=== PATIENT | male | born 1995 | race African-American/Black ===

== ENCOUNTER 2019-10-23 18:31 | Observation (INO) | payer OTHER, SELFPAY ==
--- NOTE | ~2019-10-23 | MR_ITS ---
EXAMINATION: MR brain/brain stem wo/w con DATE: 10/24/2019 12:51 INDICATION: Right leg weakness. TECHNIQUE: Magnetic resonance imaging (MRI) of the brain and brainstem was performed without and with 14 mL MultiHance intravenous contrast. Sequences included sagittal and axial T1-weighted FLAIR, axia l T1-weighted FSE, axial diffusion-weighted FS EPI, sagittal T2-weighted FLAIR, axial T2*-weighted GR E, axial T2-weighted FLAIR Propeller, and axial T2-weighted Propeller. Postcontrast sequences include d axial, coronal, and sagittal T1-weighted FSE. Apparent diffusion coefficient (ADC) maps were create d. COMPARISON: None. FINDINGS: There is no intracranial hemorrhage, acute infarction, or abnormal intracranial mass lesion . The ventricles are normal in size. The paranasal sinuses are clear. The orbits are normal. The mast oid air cells are normal. IMPRESSION: 1. Normal brain. Reviewed, dictated and finalized at location A. [employer] IMPRESSION: 1. Normal brain.
--- NOTE | ~2019-10-23 | MR_ITS ---
EXAMINATION: MR cervical spine wo/w con DATE: 10/24/2019 12:51 INDICATION: Right leg weakness. TECHNIQUE: Magnetic resonance imaging (MRI) of the cervical spine was performed without and with 14 L MultiHance intravenous contrast. Sequences included sagittal and axial T2-weighted FSE, sagittal STI R FSE, and sagittal and axial T1-weighted FSE. Postcontrast sequences included sagittal and axial T1- weighted FS FSE. COMPARISON: None FINDINGS: Bone alignment is normal. Vertebral body heights and intervertebral disc heights are normal . The spinal cord signal intensity is normal. The following disc levels are specifically discussed: C2-C3 through C6-C7: The disc does not extend beyond the endplate margin. There is no uncovertebral j oint osteoarthritis. There is no facet joint osteoarthritis. There is no neural foraminal stenosis. T here is no central canal stenosis. C7-T1: The disc does not extend beyond the endplate margin. There is no uncovertebral joint osteoarth ritis. There is mild bilateral facet joint osteoarthritis. There is no neural foraminal stenosis. The re is no central canal stenosis. IMPRESSION: 1. No etiology for the patient's symptoms. Reviewed, dictated and finalized at location A. IGN LANGUAGES PROFESSOR
--- NOTE | ~2019-10-23 | CT_ITS ---
EXAMINATION: CT brain wo con DATE: 10/23/2019 20:59 INDICATION: Numbness TECHNIQUE: Computed tomography (CT) of the head was performed without intravenous contrast. Sagittal and coronal reconstructions were performed. The mA was adjusted according to patient size. Iterative reconstruction technique was employed. The dose-length product was 681.00 mGy-cm. COMPARISON: None FINDINGS: No acute intracranial hemorrhage, acute infarction or abnormal extra axial fluid collection. Ventricl es are normal and symmetric. No mass/mass effect. The orbits, paranasal sinuses and mastoid air cells are normal. IMPRESSION: 1. Normal brain. No acute intracranial process. Reviewed, dictated and finalized at location A. NG [employer]LLER BLINDSTITCH
[2019-10-23 18:48] VITALS: BP 126/69; PULSE 82; RESP 18; TEMP 36.4; O2SAT 100
[2019-10-23 19:37] VITALS: BP 120/76; PULSE 80; RESP 16; O2SAT 100
--- NOTE | 2019-10-23 19:37 | PC.NURSE ---
received report from anahy greenwood, assuming care of pt at this time.
--- NOTE | 2019-10-23 19:37 | PC.NURSE ---
assuming care of pt at this time. received report from anahy greenwood.
[2019-10-23 19:42] LABS: Alanine Aminotransferase 24 U/L (4-50); Albumin Level 4.9 g/dL (3.5-5.1); Alkaline Phosphatase 92 U/L (38-126); Aspartate Amino Transferase 36 U/L (17-59); Bilirubin,Total 0.7 mg/dL (0.2-1.3); Blood Urea Nitrogen 10 mg/dL (9-20); Calcium 10.2 mg/dL (8.4-10.2); Carbon Dioxide 24 mmol/L (22-30); Chloride 101 mmol/L (98-107); Estimated CRCL calculation 139 ml/min; Estimated Glomerular Filt Rate > 60; Glucose 92 mg/dL (75-110); Potassium 3.5 mmol/L (3.4-5.0); Sodium 138 mmol/L (137-145)
[2019-10-23 19:47] LABS: Lipase < 10 U/L (23-300)
[2019-10-23 19:48] LABS: Basophils Percent Auto 0.7 % (0.2-1.2); Eosinophils Percent Auto 0.4 % (0-4.4); Hematocrit 44.4 % (42.0-52.0); Hemoglobin 15.7 g/dL (14.0-18.0); Immature Granulocyte Absolute 0.03 K/mm3 (0.00-0.031); Immature Granulocyte Percent A 0.5 % (0-0.5); Lymphocytes Absolute Auto 2.12 K/mm3 (0.9-3.2); Lymphocytes Percent Auto 38.8 % (18.3-44.2); Mean Corpuscular HGB Conc 35.4 g/dl (32-36); Mean Corpuscular Hemoglobin 34.4 pg (26-34); Mean Corpuscular Volume 97.2 fl (80-100); Mean Platelet Volume 10.1 fl (7.4-10.4); Monocytes Absolute Auto 0.4 K/mm3 (0.1-0.6); Monocytes Percent Auto 6.9 % (2.6-8.5); Neutrophils Absolute Auto 2.9 K/mm3 (1.3-6.7); Neutrophils Percent Auto 52.7 % (45.5-73.1); Platelet Count Result 197 k/mm3 (150-375); Red Blood Count 4.57 M/mm3 (4.6-6.20); Red Cell Distribution Width 12.1 % (11.5-14.5); White Blood Count 5.5 K/mm3 (4.5-10.0)
--- NOTE | 2019-10-23 20:00 | PC.NURSE ---
pt ambulated to bathroom w/ no difficulties at this time.
--- NOTE | 2019-10-23 20:09 | PC.NURSE ---
urine sent to lab at this time.
[2019-10-23 20:19] LABS: Add Urine Microscopic? YES; Appearance Urine Cloudy (Clear); Bacteria Urine 1+ /hpf; Bilirubin Urine Negative (Negative); Blood Urine Negative (Negative); Color Urine Yellow (Yellow); Glucose Urine UA Negative (Negative); Ketones Urine 2+ mg/dL (Negative); Leukocyte Esterase Ur 3+ LEU/UL (Negative); Mucus Urine Moderate /lpf; Nitrate Urine Negative (Negative); Protein Urine 2+ mg/dL (Negative); RBC Urine 51-75 /hpf (0-2); Specific Grav Ur 1.027 (1.001-1.035); Squamous Epithelial Cell Urine Many /hpf (Few); WBC Urine >75 /hpf
--- NOTE | 2019-10-23 20:30 | ED.GENADULT ---
HPI - General Adult General Chief complaint: Unspecified Stated complaint: my body is numb Time Seen by Provider: 10/23/19 20:10 Source: patient and RN notes reviewed Mode of arrival: wheelchair Limitations: no limitations History of Present Illness HPI narrative: Pt is a 23 y/o male who presents to the ED with c/o intermittent numbness in his hands, legs, and tongue starting earlier today. He notes that he drank a significant amount of EtOH last night. Pt states that he has been unable to use his rt leg this evening due to the numbness, noting that he had to be brought into the ED via a wheelchair. He also reports ABD pain, nausea, and vomiting starting earlier today, but denies any fever, dysuria, hematuria, diarrhea, back pain, or changes in vision. Pt states that he has had one similar episode several years ago, and notes that his physician attributed his symptoms to anxiety. MD complaint: Numbness Onset (ago): day(s) (1) Location: mouth (tongue), upper extremity (hands) and lower extremity (bilateral legs) Associated symptoms: nausea/vomiting and other (ABD pain) Related Data Allergies Allergy/AdvReac Type Severity Reaction Status Date / Time No Known Allergies Allergy Unverified 10/25/17 06:06 Review of Systems Review of Systems: Narrative: CONSTITUTIONAL: Denies fever, chills, or sweats. EYES: Denies visual changes, redness, or discharge. GASTROINTESTINAL: Reports abdominal pain, nausea, and vomiting. Denies diarrhea. GENITOURINARY: Denies dysuria or hematuria. MUSCULOSKELETAL: Denies back pain, joint pain, or myalgia. NEUROLOGIC: Denies headache or weakness. Reports numbness in bilateral legs, hands, and tongue. All systems reviewed & are unremarkable except as noted in HPI and below PMFSH Past Medical History Medical History Anxiety Asthma Athlete's foot Finger fracture, right Surgical History Surgical History History of orthopedic surgery repair of rt finger fracture Hx of tonsillectomy Social History Social History Smoking status: Smoker, status unknown Gender identity (if verbalized by the patient): Male Exam Narrative: Exam Narrative: GENERAL: Well-appearing, well-nourished, and in no acute distress. HEAD: Normocephalic, atraumatic. EYES: PERRLA and EOMI. ENT: Nares clear, no rhinorrhea or epistaxis. Mucous membranes moist. NECK: Supple. CHEST: Clear to auscultation. No respiratory distress. HEART: Regular rate and rhythm. No murmur heard. Normal peripheral pulses. ABDOMEN: Soft, nontender, nondistended, normal active bowel sounds. EXTREMITIES: Normal range of motion. No edema. SKIN: Warm, dry, no rash. NEURO: Alert and oriented. Finger to nose intact bilaterally. EOMs intact without nystagmus. No facial droop/asymmetry noted bilaterally. Grimace intact. Intact sensation in face. Hearing intact bilaterally. Shoulder shrug intact. Merchant Miller strength 5 out of 5 bilaterally. Intact facial sensation V1, V2, V3 distribution. Strength 5/5 bilateral upper extremities. Strength in the right lower extremity is 2 out of 5, patient is not able to raise his leg from the bed. He is hyperreflexic, 4+ patellar reflex RLE. Patient cannot complete [id number] with the right because he is unable to move the right lower extremity. Left lower extremity reflexes normal at 2+. [id number] is normal. Negative Babinski. Right foot cannot illicit babinski sign. Pt not able to bare weight on right leg. Otherwise is hopping to ambulate. Course Course Emergency Course: Patient presented for intermittent numbness, continued right lower leg numbness, difficulty moving the right lower extremity. Patient with hyperreflexia in the right lower extremity, decreased sensation, although he is able to discern some fine pressure sensations, pt with decreased motor function. This is concerning for
--- NOTE | 2019-10-23 20:41 | PC.NURSE ---
Called lab to add on C-Reactive Protein and ESR.
--- NOTE | 2019-10-23 20:49 | PC.NURSE ---
Called lab to add on vitamin B12 and folate.
[2019-10-23 20:53] LABS: CRP < 0.5 mg/dL (<1.0)
--- NOTE | 2019-10-23 20:54 | PC.NURSE ---
Called lab to add on urine drug screen.
[2019-10-23 21:13] LABS: Erythrocyte Sedimentation Rate 11 mm/hr (0-20)
[2019-10-23 21:14] VITALS: BP 128/76; PULSE 84; RESP 16; O2SAT 99
[2019-10-23 21:42] LABS: Barbiturate Screen Urine Negative (Negative); Benzodiazepines Screen Urine Negative (Negative)
[2019-10-23 21:43] LABS: Amphetamine Screen Urine Negative (Negative); Cannabinoid Screen Urine Positive (Negative); Cocaine Screen Urine Negative (Negative); Methadone Screen Urine Negative (Negative)
[2019-10-23 21:52] VITALS: BP 114/86; PULSE 86; RESP 16; O2SAT 99
[2019-10-23 21:59] LABS: Opiate Screen Urine Negative (Negative); Phencyclidine Screen Urine Negative (Negative)
[2019-10-23 22:10] LABS: Folic Acid 15.7 ng/mL (2.76->20)
[2019-10-23 22:26] VITALS: BP 128/74; PULSE 58; RESP 16; O2SAT 97
[2019-10-23 23:13] VITALS: BP 127/88; PULSE 69; RESP 18; O2SAT 99
[2019-10-24] VITALS (9 sets, daily range): BP systolic 115–127; BP diastolic 80–84; PULSE 59–76; RESP 16–20; TEMP 36.1–36.6; O2SAT 97–99; BMI 22.4
[2019-10-24] MEDS: CYANOCOBALAMIN INJ 1,000 MCG/ML VIAL 1000 MCG IM (01:13)
[2019-10-24] MEDS: THIAMINE HCL 200 MG/2 ML VIAL 100 MG IV PUSH (01:13)
--- NOTE | 2019-10-24 01:52 | ADMGEN ---
This patient, Familia Franz, was admitted to IMU Room 200-01. Patient/family oriented to hospital policies and general routines including ID bracelet, bed and alarms, visiting hours, pain management, procedures, bathroom and other care routines, personal items, smoking policy, room service/diet, and visiting hours. Valuables list has been completed. Information on how to activate the Rapid Response Team has been discussed. Patient/Family are encouraged to report perceived risks to care and to ask questions if they do not understand what they are told or what they should do.
--- NOTE | 2019-10-24 08:37 | PM.IMHP ---
H&P: HPI History of Present Illness Chief complaint: RIGHT LEG WEAKNESS Narrative: Date of visit 10/24. Familia Franz is a 23 year old healthy black male who on the evening of the admittedly drank heavily consuming at least 12 cans of tall boy beer and a 5th of liquor. During the day on the he was chilled nausea and vomiting some abdominal cramping. Started having symptoms of numbness early in the day and when the persisted with weakness in his right leg he presented to the emergency room for evaluation. There CT scan and laboratory work was unremarkable other than pyuria and was admitted for evaluation treatment. There was concern about myelitis and Neurology [facility] in [facility] tertiary care were consulted but no beds were available. This a.m. his symptoms have totally resolved. He does relate that several years ago had a similar episode after drinking heavily that affected his upper extremities with weakness not his lower. It resolved spontaneously also Review of Systems Review of Systems: Narrative: Constitutional weight stable appetite good Eye. The no double vision scotoma Mouth no pharyngitis laryngitis Pulmonary no shortness breath wheezing or cough CV no history of murmurs chest pain or palpitation GI after present illness had some loose stools this a.m. no melena no hematochezia Muscle skeletal no but urine as per present illness no dysuria or hematuria Neuro no history of seizures or syncope Integument no skin breakdown rashes Psych no depression PMFSH Past Medical History Medical History Anxiety Asthma Athlete's foot Finger fracture, right Surgical History Surgical History History of orthopedic surgery repair of rt finger fracture Hx of tonsillectomy Social History Social History Smoking packs per day: 3 Smoking cigarettes per day: 60.0 Years smoked: 12 Smoking pack-years: 36.00 Smoking status: Former smoker Smoking end date: 08/12/19 Alcohol intake: current Drinks per week: 30 Substance use: current Substance use type: marijuana Gender identity (if verbalized by the patient): Male Agree to blood products: Yes Meds Home Medications and Allergies Home Medications Medication Instructions Recorded Confirmed Type No Home Medications 10/24/19 10/24/19 History Allergies Allergy/AdvReac Type Severity Reaction Status Date / Time No Known Allergies Allergy Unverified 10/25/17 06:06 Vital Signs Vital Signs - 24 hr 10/23/19 18:48 10/23/19 19:37 10/23/19 21:14 Temperature 36.4 C L Pulse Rate 82 80 84 Respiratory Rate 18 16 16 Blood Pressure 126/69 120/76 128/76 Pulse Oximetry 100 100 99 10/23/19 21:52 10/23/19 22:26 10/23/19 23:13 Temperature Pulse Rate 86 58 L 69 Respiratory Rate 16 16 18 Blood Pressure 114/86 128/74 127/88 Pulse Oximetry 99 97 99 10/24/19 00:25 10/24/19 01:36 10/24/19 02:00 Temperature 36.6 C Pulse Rate 76 72 68 Respiratory Rate 18 18 20 Blood Pressure 119/80 124/82 118/84 Pulse Oximetry 99 99 97 10/24/19 03:55 10/24/19 04:00 10/24/19 06:00 Temperature 36.1 C L Pulse Rate 72 64 59 L Respiratory Rate 16 Blood Pressure 115/80 Pulse Oximetry 97 10/24/19 08:00 Temperature 36.1 C L Pulse Rate 70 Respiratory Rate 16 Blood Pressure 127/83 Pulse Oximetry 99 Exam Narrative: Exam Narrative: Blood pressure 126/82 pulse is 70 afebrile saturating 95% on room air Pupils equal reactive to light sclera anicteric Mouth normal tongue protrudes in midline Neck supple no adenopathy thyromegaly carotid bruits Lungs clear CV regular rate rhythm no murmurs or gallops Abdomen soft nontender no masses Extremities without edema distal pulses are 2+ Neuro cranial nerves 2-12 are intact 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 Fl
[2019-10-24] MEDS: THIAMINE HCL 100 MG TABLET PO (08:41)
[2019-10-24 09:29] LABS: Magnesium 1.9 mg/dL (1.6-2.3); Phosphorus 4.1 mg/dL (2.5-4.5)
--- NOTE | 2019-10-24 17:52 | PM.DS ---
DS: Diagnosis Admitting Diagnosis Admitting Diagnosis: Paresthesia with weakness Discharge Diagnosis (1) Paresthesias: Code(s): R20.2 - Paresthesia of skin Status: Acute Assessment and Plan: With associated weakness and right leg. His initially thought he may have had myelitis which is still a possibility but symptoms resolved. Probably related to his binge drinking and MR of brain, brainstem, and C-spine did not suggest myelitis or MS. Totally normal (2) ETOH abuse: Code(s): F10.10 - Alcohol abuse, uncomplicated Status: Acute Assessment and Plan: Patient occasionally binge drinks. Denies drinking on a daily basis, does maintain gainful employment. LFTs are normal and no anemia. He has gotten thiamin,B12, and magnesium and phosphorus were also normal suggesting no ongoing drinking habit (3) Pyuria: Code(s): R82.81 - Pyuria Status: Acute Assessment and Plan: Could be UTI or urethritis. Urine antigens for chlamydia and gonorrhea were obtained as well as urine culture. Got 1 dose of ceftriaxone pending results of culture and discharged on doxycycline doxycycline 100 b.i.d. Urine probe for chlamydia and GC were pending DS: Summary Hospital Course Hospital Course: 23-year-old black male or usually healthy presented with paresthesias and weakness primarily in right leg with perceived hyper reflexia. All symptoms started within 24 hours after episode of binge drinking. After 12 hours hear his symptoms had totally resolved. Metabolic parameters were negative and MR of the brain, brainstem and C-spine were all normal. He was discharged to full activity to follow up with primary care he may return to work Time Spent with Patient Time attestation: Total time spent providing and/or coordinating discharge services: 35 minutes Exam Narrative: Exam Narrative: Condition on discharge Blood pressure 116/82 pulse 76 sat 98% on room air afebrile Pupils equal reactive to light sclera anicteric Lungs clear CV regular rate rhythm Abdomen soft nontender Extremities without edema distal pulse 2 + Neuro alert cooperative no focal deficits at this time and no paresthesias or weakness detected He was up ambulating without assistance to could diet well with no nausea or other symptomatology DS: Data Data Completed and Pending Labs on day of discharge: Labs from last 24 hours 10/24/19 10/24/19 10/23/19 08:56 08:56 21:17 WBC RBC Hgb Hct MCV MCH MCHC RDW Plt Count MPV Immature Gran % (Auto) Neut % (Auto) Lymph % (Auto) Perkins % (Auto) Eos % (Auto) Baso % (Auto) Lymph # (Auto) Perkins # (Auto) Eos # (Auto) Baso # (Auto) Abs Immat Gran (auto) Absolute Neuts (auto) Absolute Nucleated RBC Nucleated RBC % ESR Sodium Potassium Chloride Carbon Dioxide BUN Creatinine Estim Creat Clear Calc Estimated GFR Glucose Calcium Phosphorus 4.1 Magnesium 1.9 Total Bilirubin AST ALT Alkaline Phosphatase C-Reactive Protein Total Protein Albumin Lipase Vitamin B12 Folate TSH (Reflex) 3.450 Urine Color Urine Appearance Urine pH Ur Specific [place] Urine Protein Urine Glucose (UA) Urine Ketones Ur Blood (Man) Urine Nitrate Urine Bilirubin Urine Urobilinogen Leukocyte Esterase Rfl Urine RBC Urine WBC Ur Squamous Epith Cells Urine Bacteria Urine Mucus Urine Opiates Screen Urine Methadone Screen Ur Barbiturates Screen Ur Phencyclidine Scrn Ur Amphetamine Screen U Benzodiazepines Scrn Urine Cocaine Screen U Cannabinoids Screen C.trachomatis RNA (TMA) Pending N.gonorrhoeae RNA (TMA) Pending 10/23/19 10/23/19 10/23/19 21:17 20:08 19:44 WBC RBC Hgb Hct MCV MCH MCHC RDW Plt Count MPV Immature Gran % (
== END 2019-10-24 14:15 | disposition home or self-care (01) ==
LOC: ANHED 10-24 00:46 → ANHIMU 10-24 02:48
PROVIDERS: Emergency Medicine; Admitting Provider Internal Medicine; Emergency Provider Emergency Medicine; Visit Provider Internal Medicine
DX: R20.0 Anesthesia of skin (principal); R53.1 Weakness; F10.10 Alcohol abuse, uncomplicated; R82.81 Pyuria; Z87.891 Personal history of nicotine dependence
CPT/HCPCS: 36415; 70450; 70553; 72156; 80053; 80307; 81001; 82607; 82746; 83690; 83735; 84100; 84443; 85025; 85652; 86140; 87040; 87086; 87088; 87491; 87591; 96365; 96372; 96374; 96375; 99285; A9270; A9577; G0378; G0379; J0696; J3411; J3420